=== PATIENT | female | born 1975 | race Caucasian/White ===

== ENCOUNTER 2017-05-13 23:53 | Emergency (ER) | payer OTHER ==
--- NOTE | ~2017-05-13 | CR72 ---
[facility] A Service of [facility] RADIOLOGY TEXT RESULTS PATIENT: ELIANA MCMILLAN LOCATION: SED : 71 UNIT #: [id number] AGE: [address]: Mack Tamez MD SEX: F ORDER DR: [id number] [place] [id number] E MR#: [id number] Acc #: [id number] NAME: ELIANA MCMILLAN : 1975 SEX: F STUDY DATE/TIME: 05/14/2017 0125 UNIT: SED ROOM: STUDY DESCRIPTION: CR Chest Single View Portable Attending Physician: Mack Tamez M.D. Ordering Physician: Mack Tamez M.D. MEDICAL IMAGING REPORT This report is preliminary unless electronic signature is present. EXAM Portable chest, 05/14 at 0125. INDICATION Acute onset chest pain at 8 o'clock this evening. COMPARISON 12/12/2016 FINDINGS AP portable chest was obtained. Lung volumes are low, but the lungs are clear. No pneumothorax is seen. Cardiac and mediastinal contours are normal. IMPRESSION Low-volume inspiration, otherwise negative chest. Dictated by... Kelvin Calderon Jr., M.D. THIS IS AN ELECTRONICALLY VERIFIED REPORT Kelvin Calderon Jr., M.D. at 05/14/2017 9:15 PM JOANA/rock TD: 05/14/2017 10:21 JOB #: [id number] MEDICAL IMAGING REPORT Page 1 of 1
--- NOTE | ~2017-05-13 | EKG ---
PATIENT: ELIANA MCMILLAN UNIT #: [id number] Ventricular Rate: 83 BPM Atrial Rate: 83 BPM P-R Interval: 124 ms QRS Duration: 90 ms Q-T Interval: 400 ms QTC Calculation(Bezet): 470 ms P [place]: 15 degrees Calculated T [place]: 11 degrees Diagnosis Line: Normal sinus rhythm Diagnosis Line: Normal ECG Diagnosis Line: When compared with ECG of 12-DEC-2016 00:23, Diagnosis Line: No significant change was found Diagnosis Line: Confirmed by JB VERA MD ([id number]) on Diagnosis Line: 05/16/2017 8:31:10 AM INTERPRETING MD: JODY JAMESON
[~2017-05-13 23:53] MED LIST: MACROBID100 M1 PO
[2017-05-14] MEDS ORDERED: THYROID MED (00:07)
[2017-05-14 00:36] LABS: PROTHROMBIN TIME (PATIENT) 10.9 SECONDS (9.5-12.4)
[2017-05-14 00:39] LABS: BASOPHIL% 0.2 % (0-2.5); DIFF IND NO; EOSINOPHIL# 0.1 X10e3 (0-0.7); EOSINOPHIL% 1.4 % (0.0-7.0); HEMATOCRIT 41.5 % (35.0-45.0); HEMOGLOBIN 13.9 gm/dL (12.0-16.0); LYMPHOCYTE# 2.4 X10e3 (1.0-3.5); LYMPHOCYTE% 24.7 % (17.0-45.0); MEAN CELL VOLUME 92.3 FL (83-96); MEAN CORPUSCULAR HEMOGLOBIN 30.8 PG (28-34); MEAN CORPUSCULAR HGB CONC 33.4 g/dL (30-36); MEAN PLATELET VOLUME 9.5 FL (6.5-11.5); MONOCYTE# 0.7 X10e3 (0-1.0); MONOCYTE% 7.7 % (3.0-12.0); NEUTROPHIL# 6.3 X10e3 (1.5-7.1); PLATELET COUNT 228 X10e3 (140-420); RED CELL DISTRIBUTION WIDTH 12.9 % (11.0-15.5); WHITE BLOOD COUNT 9.5 X10e3 (4.0-10.5)
[2017-05-14 00:43] LABS: PARTIAL THROMBOPLASTIN TIME 25.1 SECONDS (25.6-38.1)
[2017-05-14 00:45] LABS: POC - CKMB <1.0 ng/mL (0.0-7.9); POC - TROPONIN <0.05 ng/mL (<=0.05)
[2017-05-14 00:45] LABS: ALBUMIN SERUM 4.1 g/dL (3.5-5.0); BILIRUBIN, DIRECT 0.3 mg/dL (0.0-0.2); BILIRUBIN,INDIRECT 0.6 mg/dL (0.0-0.9); BILIRUBIN,TOTAL 0.9 mg/dL (0.2-2.0); CREATININE SERUM 0.8 mg/dL (0.6-1.4); GLOM FILT RATE Estimated 89.7 mL/min (>60); POTASSIUM 4.5 mmol/L (3.5-5.1); PROTEIN TOTAL SERUM 7.4 g/dL (6.0-8.3)
== END 2017-05-14 03:03 | disposition home or self-care (01) ==
LOC: SED 23:53
PROVIDERS: Emergency Medicine
DX: R07.9 Chest pain, unspecified (principal); R11.0 Nausea; R05 Cough; E03.9 Hypothyroidism, unspecified
CPT/HCPCS: 36415; 71010; 80048; 80076; 82553; 84484; 84703; 85025; 85610; 85730; 93005; 96374; 96375; 99285; J1885